=== PATIENT | female | born 1980 | race Caucasian/White ===

== ENCOUNTER → 2018-06-09 | Outpatient (CLI) | payer OTHER ==
[~2018-06-09] MED LIST: IBUP800 PO; IRON150C PO; OXYACE5T PO; PRENA1 PEARL S1 EACH PO
[2018-06-09 15:06] LABS: Adenovirus F 40/41 Not Detected (NOT DETECT); Astrovirus Not Detected (NOT DETECT); Campylobacter Sp Not Detected (NOT DETECT); Cryptosporidium Not Detected (NOT DETECT); Cyclospora Cayetanensis Not Detected (NOT DETECT); E. Coli O157 Not Detected (NOT DETECT); Entamoeba Histolytica Not Detected (NOT DETECT); Enteroaggregative E. coli-EAEC Not Detected (NOT DETECT); Enteropathogenic E. coli-EPEC Not Detected (NOT DETECT); Enterotoxigenic E. coli-ETEC Not Detected (NOT DETECT); Giardia Lamblia Not Detected (NOT DETECT); Norovirus GI/GII Not Detected (NOT DETECT); Plesiomonas Shigelloides Not Detected (NOT DETECT); Rotavirus A Not Detected (NOT DETECT); Salmonella Sp Not Detected (NOT DETECT); Sapovirus Not Detected (NOT DETECT); Shiga Toxin-prod E. coli-STEC Not Detected (NOT DETECT); Shigella/Enteroin E. coli-EIEC Not Detected (NOT DETECT); Vibrio Cholerae Not Detected (NOT DETECT); Vibrio Sp Not Detected (NOT DETECT); Yersinia Enterocolitica Not Detected (NOT DETECT)
== END | disposition home or self-care (01) ==
LOC: LAB SHORT 15:05 → LAB 15:05
PROVIDERS: Physician Assistant
DX: R19.5 Other fecal abnormalities (principal)
CPT/HCPCS: 87507

== ENCOUNTER → 2025-02-11 | Outpatient (CLI) | payer OTHER ==
[~2025-02-11] MED LIST changes: +CITALOPRAM HBR10 MG PO; +FINA5 PO; +OCP; +Premarin0.3 MG PO
[2025-02-15 10:20] LABS: Bacterial Vaginosis PCR Negative (NEGATIVE); Candida Group, PCR NOT DETECTED (NOT DETECT); Candida glabrata-krusei, PCR NOT DETECTED (NOT DETECT)
== END ==
LOC: LAB SHORT 18:50 → LAB 18:50
PROVIDERS: General Practice
DX: Z30.430 Encounter for insertion of intrauterine contraceptive device (principal)
CPT/HCPCS: 81515

== ENCOUNTER 2025-07-07 06:09 | Day surgery (SDC) | payer OTHER ==
[2025-07-07] VITALS (17 sets, daily range): BP systolic 131–161; BP diastolic 74–99
[~2025-07-07] VITALS: Ht 160 cm; Wt 74.8 kg
[~2025-07-07 06:09] MED LIST changes: -CITALOPRAM HBR10 MG PO; +Celexa20 MG PO
[2025-07-07] MEDS ORDERED: CeFAZolin Sodium 2,000 MG in NS 100 ML IV SCH ×2 (06:20→13:30)
[2025-07-07] MEDS ORDERED: CeFAZolin Sodium 2,000 MG VIAL ONE (07:06)
[2025-07-07] MEDS ORDERED: Midazolam HCl 1MG / ML 2ML Vial ONE (07:13)
[2025-07-07] MEDS ORDERED: FentaNYL Citrate 50 MCG/ML 2 ML Injection ONE ×3 (07:13→10:50)
[2025-07-07] MEDS ORDERED: Rocuronium Bromide 10 MG/ML 5ML Injection IV ONE ×3 (07:15→09:32)
[2025-07-07] MEDS ORDERED: Bupivacaine 0.5% W/EPI 1:200000 SDV 30 ML Vial ONE (07:16)
--- NOTE | 2025-07-07 07:32 | NUR ---
History, Chart, Medications and Allergies reviewed before start of procedure. Patient confirms NPO status and agrees with scheduled surgery. Pre-Op teaching done. Pt verbalizes understanding. Lungs clear T/O to Auscultation. Patient reports completing Chlorhexadine shower X2 prior to admission to hospital.
[2025-07-07] MEDS ORDERED: FentaNYL Citrate 50 MCG/ML 2 ML Injection IV PRN ×2 (08:10)
[2025-07-07] MEDS ORDERED: HYDROmorphone HCl/Pf 1MG SYR IV PRN ×3 (08:10→10:20)
[2025-07-07] MEDS ORDERED: Ondansetron HCl 2 MG / ML 2ML Vial IV PRN ×2 (08:10→10:20)
[2025-07-07] MEDS ORDERED: Ondansetron HCl 2 MG / ML 2ML Vial ONE (09:12)
[2025-07-07] MEDS ORDERED: Dexamethasone Sod Phos 10 MG/ML 1ML VIAL ONE (09:12)
[2025-07-07] MEDS ORDERED: HYDROmorphone HCl/Pf 1MG SYR ONE ×3 (09:33→11:39)
[2025-07-07] MEDS ORDERED: Sugammadex Sodium 200 MG/2ML SDV (100 MG/ML) ONE (09:33)
[2025-07-07] MEDS ORDERED: Ketorolac Tromethamine 30mg Vial ONE (10:10)
[2025-07-07] MEDS ORDERED: Naloxone HCl 0.4MG / ML 1ML Vial IV PRN (10:20)
[2025-07-07] MEDS ORDERED: FLU VACC TS2025-26(6MOS UP)/PF 45 MCG/0.5 ML SYRINGE IM SCH (10:25)
[2025-07-07] MEDS ORDERED: OxyCODONE 5 mg/Acetamin 325 mg TABLET PO PRN (10:25)
[2025-07-07] MEDS ORDERED: Ketorolac Tromethamine 30mg Vial IV PRN (10:40)
--- NOTE | 2025-07-07 12:31 | NUR ---
PT ARRIVED TO SURGICAL FLOOR AND WAS TRANSFERRED FROM [facility] TO THE SURGICAL BED WITH A SLIDESHEET AND HELP OF THREE STAFF MEMBERS. POSTOP LAP HYSTERECTOMY AND UMBILICAL REPAIR. PT IS ON 3LPM OF OXYGEN VIA NC. PT TEARFUL AND RATING PAIN 10/10. [place] HAS BEEN REMOVED. PT A&O X4. PT HAS 4 INCISION SITES ON ABD AND A CLEAR GAUZE OVER HER UMBILICUS. REPORTING PAIN THROBBING, CRAMPING AND STABBING. PT IS TOLERATING SALTINES AND SIPPING WATER. RN EDUCATED PT ON PLAN OF CARE, TO CALL FOR ASSISTANCE, AND PLACED CALL LIGHT WITHIN REACH. BOYFRIENNika STYLES IS AT BEDSIDE, ALONG WITH MOM.
--- NOTE | 2025-07-07 14:51 | NUR ---
LATE ENTRY: 1400: PT AMBULATED TO BATHROOM WITH TWO STAFF ASSIST. SHE VOIDED 700ML OF DARK YELLOW URINE. SCANT DARK DRAINAGE ON PERIPAD. PT RATES PAIN 4/10. REPORTS THAT SHE WANTS TO SLEEP, UNINTERRUPTED REST OFFERED WITH LIGHTS DIMMED. CALL LIGHT WITHIN REACH.
--- NOTE | 2025-07-07 19:16 | NUR ---
DISCHARGE NOTE: LATE ENTRY: 18:50: PT WAS DISCHARGED TO [facility]. RN PROVIDED DISCHARGE EDUCATION REGARDING HOME CARE INSTRUCTIONS, MEDICATIONS TO TAKE, APPTS TO KEEP. RN REMOVED IV. PT IS ON ROOM AIR, MAINTAINING SATURATIONS >92%. VSS. PT REPORTS PAIN WELL MANAGED WITH PO MEDICATIONS. SHE HAS AMBULATED INDEPENDENTLY TO THE BATHROOM, AND IS ABLE TO DRESS HERSELF. TOLERATING PO INTAKE. HARD SCRIPT GIVEN TO BOYFRIEND, WITH PT'S PERMISSION. ALL PERSONAL BELONGINGS RETURNED TO PT. PT AMBULATED VIA WHEELCHAIR, PROPELLED BY RN, TO PRIVATE VEHICLE DRIVEN BY PT'S BOYFRIEND. PT TOLERATED DISCHARGE PROCEDURE WELL.
== END 2025-07-07 18:54 | disposition home or self-care (01) ==
LOC: ORSCMMR 06:09 → ORD 07:30 → ORSCMMR 07:30 → SURS 11:56 → ORSCMMR 18:54
PROVIDERS: Obstetrics & Gynecology
PROC: 0U544ZZ Destruction of Uterine Supporting Structure, Percutaneous Endoscopic Approach (ICD-10-PCS; principal; 2025-07-07 07:30)
PROC: 0UT2FZZ Resection of Bilateral Ovaries, Via Natural or Artificial Opening With Percutaneous Endoscopic Assistance (ICD-10-PCS; principal; 2025-07-07 07:30)
PROC: 0UT9FZZ Resection of Uterus, Via Natural or Artificial Opening With Percutaneous Endoscopic Assistance (ICD-10-PCS; principal; 2025-07-07 07:30)
PROC: 0WUF4JZ Supplement Abdominal Wall with Synthetic Substitute, Percutaneous Endoscopic Approach (ICD-10-PCS; principal; 2025-07-07 07:30)
PROC: 0UT7FZZ Resection of Bilateral Fallopian Tubes, Via Natural or Artificial Opening With Percutaneous Endoscopic Assistance (ICD-10-PCS; principal; 2025-07-07 07:30)
DX: N92.1 Excessive and frequent menstruation with irregular cycle (principal); D25.0 Submucous leiomyoma of uterus; N94.6 Dysmenorrhea, unspecified; N94.10 Unspecified dyspareunia; R10.23 Pelvic and perineal pain bilateral; N83.12 Corpus luteum cyst of left ovary; N83.11 Corpus luteum cyst of right ovary; N80.03 Adenomyosis of the uterus; N83.8 Other noninflammatory disorders of ovary, fallopian tube and broad ligament; K42.9 Umbilical hernia without obstruction or gangrene; K43.2 Incisional hernia without obstruction or gangrene; F41.9 Anxiety disorder, unspecified; Z79.899 Other long term (current) drug therapy
CPT/HCPCS: 36415; 86850; 86900; 86901; 88305; 88307; 94760; A9270; C1781; J0690; J1100; J1171; J1885; J2250; J2405; J2704; J3010; J7120